=== PATIENT | male | born 1950 | race Caucasian/White ===

== ENCOUNTER 2023-12-29 10:42 | Inpatient (IN) | payer OTHER ==
[~2023-12-29] VITALS: Ht 170.2 cm; Wt 63.5 kg
[2023-12-29 10:53] VITALS: BP_SYST 91; PULSE 82; RESP 18; TEMP 98.1; O2SAT 97
[2023-12-29 11:38] LABS: BASOPHILS % (AUTO) 0.2 % (0.0-2.0); EOSINOPHILS # (AUTO) 0.2 K/uL (0.0-0.4); EOSINOPHILS % (AUTO) 2.4 % (0.0-4.0); HEMATOCRIT 34.8 % (36-54); HEMOGLOBIN 11.7 g/dL (14.0-18.0); LYMPHOCYTES # (AUTO) 1.1 K/uL (1.0-5.5); MEAN CORPUSCULAR HEMOGLOBIN 30 pg (27-31); MEAN CORPUSCULAR HGB CONC 34 % (32-36); MEAN CORPUSCULAR VOLUME 90 fL (79.0-98.0); MONOCYTES # (AUTO) 0.7 K/uL (0.0-1.0); MONOCYTES % (AUTO) 11.1 % (1.7-9.3); NEUTROPHILS # (AUTO) 4.4 K/uL (1.8-7.7); NEUTROPHILS % (AUTO) 69.3 % (40.0-70.0); PLATELET COUNT (AUTO) 217 K/uL (130-430); RED BLOOD CELL COUNT(AUTO) 3.88 MIL/uL (4.2-6.2); RED CELL DISTRIBUTION WIDTH 14.4 % (9.0-15.0); WHITE BLOOD COUNT (AUTO) 6.4 K/uL (4.8-10.8)
[2023-12-29 12:00] LABS: ALANINE AMINOTRANSFERASE 25 U/L (12-78); ALBUMIN 3.2 g/dL (3.4-4.8); ANION GAP 8 (5-15); ASPARTATE AMINOTRANSFERASE 29 U/L (10-37); CARBON DIOXIDE 25 mmol/L (23-29); CHLORIDE 94 mmol/L (98-107); CREATININE 1.33 mg/dL (0.55-1.30); GLUCOSE 114 mg/dL (74-106); POTASSIUM 4.1 mmol/L (3.5-5.1); SALICYLATE 1 mg/dL (3-30); SODIUM SERUM 127 mmol/L (136-145); TOTAL BILIRUBIN 0.4 mg/dL (0.0-1.0); TOTAL PROTEIN, SERUM 8.8 g/dL (6.4-8.3); UREA NITROGEN, BLOOD 18 mg/dL (8-21)
[2023-12-29 12:07] LABS: ACETAMINOPHEN < 1 ug/mL (1-30); ALCOHOL, BLOOD < 3 mg/dL (<10)
[2023-12-29] MEDS: NACL 0.9% 1,000 ML IV ONE (13:58)
[2023-12-29] MEDS ORDERED: PANT40TA45 PO (15:35)
[2023-12-29] MEDS ORDERED: SENN-301 PO (15:35)
[2023-12-29] MEDS ORDERED: TAMS0.4C96 PO (15:35)
[2023-12-29] MEDS ORDERED: LEVE750T12 PO (15:35)
[2023-12-29] MEDS ORDERED: GABA-529 PO (15:35)
[2023-12-29] MEDS ORDERED: OXCA300T38 PO (15:35)
[2023-12-29] MEDS: OLANZapine IntraMuscular 10 MG VIAL (FOR I.M. INJECTION ONLY) IM ONE (15:54)
[2023-12-29 16:24] VITALS: BP_SYST 188; PULSE 94
[2023-12-29 16:48] VITALS: BP_SYST 188; PULSE 94; RESP 15; TEMP 98.6; O2SAT 94
[2023-12-29] MEDS: cefTRIAXone 1 GM IVPB PREMIX 50 ML IV ONE (16:51)
[2023-12-29] MEDS: D5/0.45 NS 1,000 ML IV SCH (16:52)
[2023-12-29] MEDS ORDERED: LORazepam 2 MG/ML VIAL IVP PRN (18:30)
[2023-12-29] MEDS: LORazepam 2 MG/ML VIAL IVP PRN (20:27)
[2023-12-29] MEDS: levETIRAcetam 500 MG TABLET PO SCH (20:27)
[2023-12-30 00:24] VITALS: BP_SYST 150; PULSE 73; RESP 18; TEMP 97.3; O2SAT 95
[2023-12-30 08:00] VITALS: BP_SYST 153; PULSE 111; RESP 18; TEMP 97.1; O2SAT 93
[2023-12-30] MEDS: TAMSULOSIN HCL 0.4 MG CAP PO SCH (08:30)
[2023-12-30 12:34] VITALS: BP_SYST 151; PULSE 88; RESP 17; TEMP 97.2; O2SAT 97
[2023-12-30] MEDS: cefTRIAXone 1 GM IVPB PREMIX 50 ML IV SCH (15:41)
[2023-12-30 16:51] VITALS: BP_SYST 149; PULSE 95; RESP 19; TEMP 97.2; O2SAT 95
[2023-12-30] MEDS ORDERED: levETIRAcetam 500 MG TABLET PO SCH (19:45)
[2023-12-30 20:00] VITALS: BP_SYST 145; PULSE 97; RESP 18; TEMP 97.8; O2SAT 96
[2023-12-30] MEDS: SENNOSIDES/DOCUSATE SODIUM 1 TAB TABLET(SENOKOT-S) PO SCH (21:40)
[2023-12-31 00:10] VITALS: BP_SYST 146; PULSE 96; RESP 18; TEMP 98.2; O2SAT 97
[2023-12-31 06:32] LABS: BASOPHILS # (AUTO) 0.1 K/uL (0.0-0.2); BASOPHILS % (AUTO) 0.5 % (0.0-2.0); EOSINOPHILS # (AUTO) 0.1 K/uL (0.0-0.4); EOSINOPHILS % (AUTO) 0.5 % (0.0-4.0); HEMATOCRIT 35.4 % (36-54); LYMPHOCYTES # (AUTO) 0.8 K/uL (1.0-5.5); LYMPHOCYTES % (AUTO) 7.9 % (20.5-51.5); MEAN CORPUSCULAR HEMOGLOBIN 30 pg (27-31); MEAN CORPUSCULAR HGB CONC 34 % (32-36); MEAN CORPUSCULAR VOLUME 89 fL (79.0-98.0); MONOCYTES # (AUTO) 0.9 K/uL (0.0-1.0); NEUTROPHILS # (AUTO) 8.6 K/uL (1.8-7.7); NEUTROPHILS % (AUTO) 82.1 % (40.0-70.0); PLATELET COUNT (AUTO) 227 K/uL (130-430); RED BLOOD CELL COUNT(AUTO) 3.99 MIL/uL (4.2-6.2); RED CELL DISTRIBUTION WIDTH 14.4 % (9.0-15.0); WHITE BLOOD COUNT (AUTO) 10.4 K/uL (4.8-10.8)
[2023-12-31 06:51] LABS: ANION GAP 14 (5-15); CARBON DIOXIDE 22 mmol/L (23-29); CHLORIDE 97 mmol/L (98-107); CREATININE 1.29 mg/dL (0.55-1.30); GLUCOSE 143 mg/dL (74-106); SODIUM SERUM 133 mmol/L (136-145); UREA NITROGEN, BLOOD 10 mg/dL (8-21)
[2023-12-31 06:54] LABS: POTASSIUM 2.9 mmol/L (3.5-5.1)
[2023-12-31 08:00] VITALS: BP_SYST 124; PULSE 96; RESP 18; TEMP 98.4; O2SAT 98
[2023-12-31] MEDS ORDERED: TAMSULOSIN HCL 0.4 MG CAP PO SCH (09:00)
[2023-12-31] MEDS: LIDOCAINE 1% 10 MG/ML, 20 ML MDV INJ ONE (09:44)
[2023-12-31] MEDS: PANTOPRAZOLE SODIUM 40 MG TAB PO SCH (10:21)
[2023-12-31] MEDS ORDERED: POTASSIUM CHLORIDE 20 MEQ/PKT PACKET PO ONE (11:00)
[2023-12-31 11:19] LABS: BILIRUBIN,URINE NEGATIVE (NEGATIVE); BLOOD, URINE 2+ (NEGATIVE); CLARITY/URINE SL CLOUDY (CLEAR); COLOR,URINE YELLOW (YELLOW); GLUCOSE,URINE NEGATIVE (NEGATIVE); KETONES,URINE TRACE (NEGATIVE); LEUKOCYTE ESTERASE ,URINE NEGATIVE (NEGATIVE); NITRITE, URINE NEGATIVE (NEGATIVE); PH,URINE 5.5 (5.0-8.0); PROTEIN URINE NEGATIVE (NEGATIVE); UROBILINOGEN,URINE 0.2 (0.2-1.0)
[2023-12-31 11:36] LABS: BACTERIA,URINE FEW /HPF (None Seen); RBC,URINE 80-100 /HPF (0-3)
[2023-12-31 12:00] VITALS: BP_SYST 109; PULSE 81; RESP 18; TEMP 98; O2SAT 96
[2023-12-31] MEDS: D5NS 500 ML IV ONE (14:49)
[2023-12-31] MEDS: POTASSIUM CHLORIDE 20 MEQ TABLET.ER PO ONE (14:49)
[2023-12-31 16:09] VITALS: BP_SYST 109; PULSE 102; RESP 18; TEMP 98; O2SAT 97
[2023-12-31 19:32] LABS: BASOPHILS % (AUTO) 0.4 % (0.0-2.0); EOSINOPHILS # (AUTO) 0.1 K/uL (0.0-0.4); EOSINOPHILS % (AUTO) 1.7 % (0.0-4.0); HEMATOCRIT 32.3 % (36-54); HEMOGLOBIN 11.2 g/dL (14.0-18.0); LYMPHOCYTES # (AUTO) 1.2 K/uL (1.0-5.5); LYMPHOCYTES % (AUTO) 13.8 % (20.5-51.5); MEAN CORPUSCULAR HEMOGLOBIN 30 pg (27-31); MEAN CORPUSCULAR HGB CONC 35 % (32-36); MONOCYTES % (AUTO) 11.1 % (1.7-9.3); NEUTROPHILS # (AUTO) 6.6 K/uL (1.8-7.7); PLATELET COUNT (AUTO) 210 K/uL (130-430); RED BLOOD CELL COUNT(AUTO) 3.72 MIL/uL (4.2-6.2); RED CELL DISTRIBUTION WIDTH 14.3 % (9.0-15.0); WHITE BLOOD COUNT (AUTO) 9.1 K/uL (4.8-10.8)
[2023-12-31 19:34] LABS: MEAN CORPUSCULAR VOLUME 87 fL (79.0-98.0)
[2023-12-31 20:00] VITALS: BP_SYST 124; PULSE 102; RESP 18; TEMP 98.5; O2SAT 100
[2023-12-31 23:00] VITALS: BP_SYST 145; PULSE 89; RESP 16; O2SAT 99
[2024-01-01] VITALS (8 sets, daily range): BP systolic 108–134; PULSE 76–89; RESP 16–19; TEMP 97–98.4; O2SAT 96–99
[2024-01-01 07:36] LABS: BASOPHILS % (AUTO) 0.5 % (0.0-2.0); EOSINOPHILS # (AUTO) 0.2 K/uL (0.0-0.4); EOSINOPHILS % (AUTO) 4.2 % (0.0-4.0); HEMATOCRIT 30.4 % (36-54); HEMOGLOBIN 10.3 g/dL (14.0-18.0); LYMPHOCYTES # (AUTO) 0.8 K/uL (1.0-5.5); LYMPHOCYTES % (AUTO) 14.7 % (20.5-51.5); MEAN CORPUSCULAR HEMOGLOBIN 30 pg (27-31); MEAN CORPUSCULAR HGB CONC 34 % (32-36); MEAN CORPUSCULAR VOLUME 89 fL (79.0-98.0); MONOCYTES # (AUTO) 0.9 K/uL (0.0-1.0); MONOCYTES % (AUTO) 16.6 % (1.7-9.3); NEUTROPHILS # (AUTO) 3.5 K/uL (1.8-7.7); PLATELET COUNT (AUTO) 206 K/uL (130-430); RED BLOOD CELL COUNT(AUTO) 3.43 MIL/uL (4.2-6.2); RED CELL DISTRIBUTION WIDTH 14.1 % (9.0-15.0); WHITE BLOOD COUNT (AUTO) 5.5 K/uL (4.8-10.8)
[2024-01-01 07:46] LABS: ANION GAP 10 (5-15); CALCIUM 8.7 mg/dL (8.4-11.0); CARBON DIOXIDE 22 mmol/L (23-29); CHLORIDE 104 mmol/L (98-107); CREATININE 1.05 mg/dL (0.55-1.30); GLUCOSE 124 mg/dL (74-106); POTASSIUM 3.9 mmol/L (3.5-5.1); SODIUM SERUM 136 mmol/L (136-145); UREA NITROGEN, BLOOD 13 mg/dL (8-21)
[2024-01-02] VITALS (8 sets, daily range): BP systolic 120–148; PULSE 68–78; RESP 16–20; TEMP 97–98.2; O2SAT 94–98
[2024-01-02 07:08] LABS: ANION GAP 10 (5-15); CALCIUM 8.6 mg/dL (8.4-11.0); CARBON DIOXIDE 24 mmol/L (23-29); CHLORIDE 105 mmol/L (98-107); CREATININE 0.93 mg/dL (0.55-1.30); GLUCOSE 118 mg/dL (74-106); SODIUM SERUM 139 mmol/L (136-145); UREA NITROGEN, BLOOD 15 mg/dL (8-21)
[2024-01-02 07:19] LABS: BASOPHILS % (AUTO) 0.4 % (0.0-2.0); EOSINOPHILS # (AUTO) 0.3 K/uL (0.0-0.4); EOSINOPHILS % (AUTO) 5.1 % (0.0-4.0); HEMATOCRIT 31.2 % (36-54); HEMOGLOBIN 10.7 g/dL (14.0-18.0); LYMPHOCYTES % (AUTO) 19.2 % (20.5-51.5); MEAN CORPUSCULAR HEMOGLOBIN 30 pg (27-31); MEAN CORPUSCULAR HGB CONC 34 % (32-36); MEAN CORPUSCULAR VOLUME 88 fL (79.0-98.0); MONOCYTES # (AUTO) 0.9 K/uL (0.0-1.0); MONOCYTES % (AUTO) 16.2 % (1.7-9.3); NEUTROPHILS # (AUTO) 3.2 K/uL (1.8-7.7); NEUTROPHILS % (AUTO) 59.1 % (40.0-70.0); PLATELET COUNT (AUTO) 197 K/uL (130-430); RED BLOOD CELL COUNT(AUTO) 3.53 MIL/uL (4.2-6.2); RED CELL DISTRIBUTION WIDTH 14.3 % (9.0-15.0); WHITE BLOOD COUNT (AUTO) 5.4 K/uL (4.8-10.8)
[2024-01-02 07:31] LABS: ERYTHROCYTE SEDIMENTATION RATE 91 MM/HR (0-15)
[2024-01-03 01:30] VITALS: BP_SYST 142; PULSE 76; RESP 17; TEMP 96.5; O2SAT 97
[2024-01-03 07:44] LABS: BASOPHILS % (AUTO) 0.3 % (0.0-2.0); EOSINOPHILS # (AUTO) 0.2 K/uL (0.0-0.4); EOSINOPHILS % (AUTO) 3.1 % (0.0-4.0); HEMATOCRIT 32.8 % (36-54); LYMPHOCYTES % (AUTO) 18.2 % (20.5-51.5); MEAN CORPUSCULAR HEMOGLOBIN 30 pg (27-31); MEAN CORPUSCULAR HGB CONC 34 % (32-36); MEAN CORPUSCULAR VOLUME 89 fL (79.0-98.0); MONOCYTES # (AUTO) 0.9 K/uL (0.0-1.0); MONOCYTES % (AUTO) 15.1 % (1.7-9.3); NEUTROPHILS # (AUTO) 3.6 K/uL (1.8-7.7); NEUTROPHILS % (AUTO) 63.3 % (40.0-70.0); PLATELET COUNT (AUTO) 233 K/uL (130-430); RED BLOOD CELL COUNT(AUTO) 3.69 MIL/uL (4.2-6.2); RED CELL DISTRIBUTION WIDTH 14.3 % (9.0-15.0); WHITE BLOOD COUNT (AUTO) 5.7 K/uL (4.8-10.8)
[2024-01-03 07:47] LABS: ALANINE AMINOTRANSFERASE 39 U/L (12-78); ALBUMIN 2.8 g/dL (3.4-4.8); ANION GAP 12 (5-15); ASPARTATE AMINOTRANSFERASE 25 U/L (10-37); CALCIUM 9.4 mg/dL (8.4-11.0); CARBON DIOXIDE 23 mmol/L (23-29); CHLORIDE 102 mmol/L (98-107); CREATININE 0.96 mg/dL (0.55-1.30); GLUCOSE 134 mg/dL (74-106); PHOSPHORUS 4.1 mg/dL (2.7-4.5); POTASSIUM 4.6 mmol/L (3.5-5.1); SODIUM SERUM 137 mmol/L (136-145); TOTAL BILIRUBIN 0.3 mg/dL (0.0-1.0); TOTAL PROTEIN, SERUM 8.3 g/dL (6.4-8.3); UREA NITROGEN, BLOOD 14 mg/dL (8-21)
[2024-01-03 08:15] VITALS: BP_SYST 145; PULSE 74; RESP 20; TEMP 97.7; O2SAT 99
[2024-01-03 08:21] LABS: ERYTHROCYTE SEDIMENTATION RATE 104 MM/HR (0-15)
[2024-01-03 09:17] VITALS: O2SAT 99
[2024-01-03 11:57] VITALS: BP_SYST 138; PULSE 60; RESP 16; TEMP 97.5; O2SAT 97
[2024-01-03 16:47] VITALS: BP_SYST 132; PULSE 66; RESP 17; TEMP 97.9; O2SAT 96
[2024-01-03 20:00] VITALS: BP_SYST 109; PULSE 86; RESP 18; TEMP 97.2; O2SAT 96
[2024-01-04 00:19] VITALS: BP_SYST 127; PULSE 75; RESP 18; TEMP 97.3; O2SAT 94
[2024-01-04 04:09] LABS: BASOPHILS % (AUTO) 0.5 % (0.0-2.0); EOSINOPHILS # (AUTO) 0.1 K/uL (0.0-0.4); EOSINOPHILS % (AUTO) 2.3 % (0.0-4.0); HEMATOCRIT 34.4 % (36-54); HEMOGLOBIN 11.8 g/dL (14.0-18.0); LYMPHOCYTES # (AUTO) 1.5 K/uL (1.0-5.5); LYMPHOCYTES % (AUTO) 26.3 % (20.5-51.5); MEAN CORPUSCULAR HEMOGLOBIN 30 pg (27-31); MEAN CORPUSCULAR HGB CONC 34 % (32-36); MEAN CORPUSCULAR VOLUME 88 fL (79.0-98.0); NEUTROPHILS % (AUTO) 52.9 % (40.0-70.0); PLATELET COUNT (AUTO) 246 K/uL (130-430); RED BLOOD CELL COUNT(AUTO) 3.89 MIL/uL (4.2-6.2); WHITE BLOOD COUNT (AUTO) 5.6 K/uL (4.8-10.8)
[2024-01-04 04:27] LABS: ALANINE AMINOTRANSFERASE 41 U/L (12-78); ALBUMIN 2.9 g/dL (3.4-4.8); ANION GAP 9 (5-15); ASPARTATE AMINOTRANSFERASE 22 U/L (10-37); CARBON DIOXIDE 27 mmol/L (23-29); CHLORIDE 100 mmol/L (98-107); CREATININE 0.84 mg/dL (0.55-1.30); GLUCOSE 112 mg/dL (74-106); SODIUM SERUM 136 mmol/L (136-145); TOTAL BILIRUBIN 0.4 mg/dL (0.0-1.0); TOTAL PROTEIN, SERUM 8.7 g/dL (6.4-8.3); UREA NITROGEN, BLOOD 10 mg/dL (8-21)
[2024-01-04 10:50] VITALS: O2SAT 96
[2024-01-04 11:36] VITALS: BP_SYST 116; PULSE 67; RESP 16; TEMP 97.9; O2SAT 97
[2024-01-04 16:40] VITALS: BP_SYST 119; PULSE 60; RESP 16; TEMP 98.1; O2SAT 96
[2024-01-04] MEDS: ENOXAPARIN SODIUM 40 MG/0.4 ML SYRINGE SUBCUT ONE (19:05)
[2024-01-04 20:00] VITALS: BP_SYST 127; PULSE 80; RESP 18; TEMP 97.8; O2SAT 94
[2024-01-04] MEDS: QUEtiapine FUMARATE 25 MG TABLET PO SCH (20:59)
[2024-01-05] VITALS (9 sets, daily range): BP systolic 100–125; PULSE 69–112; RESP 16–18; TEMP 97.6–98.2; O2SAT 95–97
[2024-01-05 05:16] LABS: BASOPHILS % (AUTO) 0.7 % (0.0-2.0); EOSINOPHILS # (AUTO) 0.1 K/uL (0.0-0.4); EOSINOPHILS % (AUTO) 2.5 % (0.0-4.0); HEMATOCRIT 30.8 % (36-54); HEMOGLOBIN 10.5 g/dL (14.0-18.0); LYMPHOCYTES # (AUTO) 1.5 K/uL (1.0-5.5); LYMPHOCYTES % (AUTO) 27.5 % (20.5-51.5); MEAN CORPUSCULAR HEMOGLOBIN 30 pg (27-31); MEAN CORPUSCULAR HGB CONC 34 % (32-36); MEAN CORPUSCULAR VOLUME 88 fL (79.0-98.0); MONOCYTES # (AUTO) 1.1 K/uL (0.0-1.0); MONOCYTES % (AUTO) 20.3 % (1.7-9.3); NEUTROPHILS # (AUTO) 2.6 K/uL (1.8-7.7); PLATELET COUNT (AUTO) 272 K/uL (130-430); RED CELL DISTRIBUTION WIDTH 13.8 % (9.0-15.0); WHITE BLOOD COUNT (AUTO) 5.3 K/uL (4.8-10.8)
[2024-01-05 05:56] LABS: ALANINE AMINOTRANSFERASE 38 U/L (12-78); ALBUMIN 2.8 g/dL (3.4-4.8); ANION GAP 12 (5-15); ASPARTATE AMINOTRANSFERASE 18 U/L (10-37); CALCIUM 9.3 mg/dL (8.4-11.0); CARBON DIOXIDE 24 mmol/L (23-29); CHLORIDE 101 mmol/L (98-107); CREATININE 0.98 mg/dL (0.55-1.30); GLUCOSE 113 mg/dL (74-106); POTASSIUM 3.8 mmol/L (3.5-5.1); SODIUM SERUM 137 mmol/L (136-145); TOTAL BILIRUBIN 0.4 mg/dL (0.0-1.0); TOTAL PROTEIN, SERUM 8.2 g/dL (6.4-8.3); UREA NITROGEN, BLOOD 17 mg/dL (8-21)
[2024-01-05] MEDS: ENOXAPARIN SODIUM 40 MG/0.4 ML SYRINGE SUBCUT SCH (08:38)
[2024-01-05] MEDS ORDERED: SER25 PO (13:08)
[2024-01-06] VITALS: BP_SYST 133; PULSE 76; RESP 16; TEMP 97; O2SAT 97
[2024-01-06 11:08] VITALS: BP_SYST 129; PULSE 78; RESP 16; TEMP 97.1; O2SAT 98
[2024-01-06 15:33] VITALS: BP_SYST 136; PULSE 94; RESP 18; TEMP 98.4; O2SAT 98
[2024-01-06 15:38] VITALS: BP_SYST 136; PULSE 94; RESP 18; TEMP 98.4; O2SAT 98
[2024-01-06 15:39] VITALS: BP_SYST 136; PULSE 94; RESP 18; TEMP 98.4; O2SAT 98
[2024-01-06 15:47] VITALS: BP_SYST 136; PULSE 94; RESP 18; TEMP 98.4; O2SAT 98
== END 2024-01-06 16:00 | disposition home or self-care (01) | DRG 643 ==
LOC: SED 10:42 → SMU 15:18
PROVIDERS: ADMIT Specialist; ATTEND Specialist
PROC: 4A00X4Z Measurement of Central Nervous Electrical Activity, External Approach (ICD-10-PCS; principal; 2023-12-31)
DX: E22.2 Syndrome of inappropriate secretion of antidiuretic hormone (principal); G93.41 Metabolic encephalopathy; S02.40CA Maxillary fracture, right side, initial encounter for closed fracture; R62.7 Adult failure to thrive; G89.29 Other chronic pain; M54.9 Dorsalgia, unspecified; G62.9 Polyneuropathy, unspecified; G40.909 Epilepsy, unspecified, not intractable, without status epilepticus; E87.5 Hyperkalemia; N40.1 Benign prostatic hyperplasia with lower urinary tract symptoms; K21.9 Gastro-esophageal reflux disease without esophagitis; R47.1 Dysarthria and anarthria; R33.8 Other retention of urine; R73.9 Hyperglycemia, unspecified; D64.9 Anemia, unspecified; R53.81 Other malaise; G30.9 Alzheimer's disease, unspecified; F02.80 Dementia in other diseases classified elsewhere, unspecified severity, without behavioral disturbance, psychotic disturbance, mood disturbance, and anxiety; S02.2XXA Fracture of nasal bones, initial encounter for closed fracture; W18.39XA Other fall on same level, initial encounter; Y93.89 Activity, other specified; Y92.89 Other specified places as the place of occurrence of the external cause; Y99.8 Other external cause status; Z68.21 Body mass index [BMI] 21.0-21.9, adult
CPT/HCPCS: 36415; 70450-TC; 70486; 71045; 72125-TC; 80048; 80053; 81000; 81001; 81015; 83735; 84100; 84132; 84484; 85025; 85651; 87081; 87086; 92610-GN; 93005; 93306; 93880; 95816; 96360; 96372; 97110-GP; 97112-GP; 97116-GP; 97530-GP; 99285; G0480; G0481; G0482; J0696; J1650; J2001; J2060; J3490

== ENCOUNTER 2024-01-29 07:33 | Emergency (ER) | payer OTHER ==
[~2024-01-29] VITALS: Ht 172.7 cm; Wt 65.8 kg
[~2024-01-29 07:33] MED LIST: GABA-529 PO; LEVE750T12 PO; SENN-301 PO; SER25 PO; TAMS0.4C96 PO
[2024-01-29 07:39] VITALS: BP_SYST 119; PULSE 96; RESP 18; TEMP 97.6; O2SAT 97
[2024-01-29 09:11] LABS: BASOPHILS % (AUTO) 0.4 % (0.0-2.0); EOSINOPHILS # (AUTO) 0.1 K/uL (0.0-0.4); EOSINOPHILS % (AUTO) 0.6 % (0.0-4.0); LYMPHOCYTES # (AUTO) 1.6 K/uL (1.0-5.5); LYMPHOCYTES % (AUTO) 13.5 % (20.5-51.5); MEAN CORPUSCULAR HEMOGLOBIN 29 pg (27-31); MEAN CORPUSCULAR HGB CONC 33 % (32-36); MEAN CORPUSCULAR VOLUME 87 fL (79.0-98.0); MONOCYTES # (AUTO) 0.9 K/uL (0.0-1.0); MONOCYTES % (AUTO) 7.7 % (1.7-9.3); NEUTROPHILS % (AUTO) 77.8 % (40.0-70.0); PLATELET COUNT (AUTO) 282 K/uL (130-430); RED CELL DISTRIBUTION WIDTH 14.1 % (9.0-15.0); WHITE BLOOD COUNT (AUTO) 11.6 K/uL (4.8-10.8)
[2024-01-29 09:23] LABS: ANION GAP 12 (5-15); CALCIUM 9.6 mg/dL (8.4-11.0); CARBON DIOXIDE 24 mmol/L (23-29); CHLORIDE 99 mmol/L (98-107); CREATININE 1.31 mg/dL (0.55-1.30); GLUCOSE 120 mg/dL (74-106); POTASSIUM 4.5 mmol/L (3.5-5.1); SODIUM SERUM 135 mmol/L (136-145); UREA NITROGEN, BLOOD 17 mg/dL (8-21)
[2024-01-29 10:52] LABS: BILIRUBIN,URINE NEGATIVE (NEGATIVE); BLOOD, URINE 1+ (NEGATIVE); CLARITY/URINE CLOUDY (CLEAR); COLOR,URINE YELLOW (YELLOW); GLUCOSE,URINE NEGATIVE (NEGATIVE); KETONES,URINE NEGATIVE (NEGATIVE); LEUKOCYTE ESTERASE ,URINE 3+ (NEGATIVE); NITRITE, URINE NEGATIVE (NEGATIVE); PH,URINE 7.5 (5.0-8.0); PROTEIN URINE 1+ (NEGATIVE); UROBILINOGEN,URINE 0.2 (0.2-1.0)
[2024-01-29 11:02] LABS: RBC,URINE 20-50 /HPF (0-3); WBC,URINE >100 /HPF (0-3)
[2024-01-29 11:03] LABS: BACTERIA,URINE FEW /HPF (None Seen)
[2024-01-29] MEDS ORDERED: CEPH250C PO (11:03)
[2024-01-29 11:29] VITALS: BP_SYST 136; PULSE 94; RESP 19; TEMP 98.1; O2SAT 97
== END 2024-01-29 11:31 | disposition home or self-care (01) ==
LOC: SED 07:33
DX: T83.098A Other mechanical complication of other urinary catheter, initial encounter (principal); R33.9 Retention of urine, unspecified; E11.9 Type 2 diabetes mellitus without complications; I10 Essential (primary) hypertension; Z79.899 Other long term (current) drug therapy; Z79.2 Long term (current) use of antibiotics; X58.XXXA Exposure to other specified factors, initial encounter
CPT/HCPCS: 36415; 80048; 81000; 81001; 81015; 85025; 87086; 87186; 99284